=== PATIENT | male | born 1940 | race Caucasian/White ===

== ENCOUNTER 2016-05-11 14:15 | Inpatient (IN) | payer OTHER ==
[~2016-05-11] VITALS: Ht 182.9 cm; Wt 88.5 kg
--- NOTE | ~2016-05-11 | H ---
[facility] [place] [address] HISTORY AND PHYSICAL Name: KARAN GODWIN Room #: 241-P [facility] IN M.R.#: [id number] Admission: 05/16/16 Attend Phys: Geoffrey Andrews MD Discharge: 05/17/16 Date of : 42 Report #: [id number] THIS REPORT FOR: //name// For History and Physical, please see office documentation/handwritten note in the patient's medical record. By: 1535 Geoffrey Andrews MD /
--- NOTE | ~2016-05-11 | O ---
[facility] [place] [address] OPERATIVE REPORT Name: KARAN GODWIN Room #: 150-7 ADM IN M.R.#: [id number] Admission: 05/16/16 Attend Phys: Geoffrey Andrews MD Discharge: Date of : 42 Report #: [id number] THIS REPORT FOR: //name// CC: Conner Lamas [facility] physician/PCP Jesus Andrews DATE OF SERVICE: 05/16/2016 PREOPERATIVE DIAGNOSIS: Left carotid artery stenosis. POSTOPERATIVE DIAGNOSIS: Left carotid artery stenosis. OPERATION: Left carotid endarterectomy with patch closure. SURGEON: Geoffrey Andrews MD COLLEGE COACH: Vaughn. ANESTHESIA: General. INDICATION: The patient is a 75-year-old seen for Dr. Epperson. The patient has 80% exophytic lesion in the origin of the left internal carotid artery. The patient presented with episode of expressive aphasia on April 17. No recurrence was noted. No other motor or sensory symptoms were seen. Arteriography showed trivial disease in the right carotid. FINDINGS AND TECHNIQUE: After general anesthesia was established, exposure was obtained through an oblique left neck incision, common facial vein was divided. Common internal and external carotid arteries were identified and controlled, 10,000 units of heparin were given. Continuous electroencephalographic monitoring was performed during the operation when the carotid vessels were occluded. No EEG changes were noted. The carotid arteriotomy was made. The endarterectomy was performed without creating a distal flap. Neointima was inspected and all loose debris was removed. Tacking sutures were placed at the transition zone. When the endarterectomy was deemed to be satisfactory, the arteriotomy was closed with Bovine pericardial patch and running Prolene. Prior to finishing the closure, the carotid vessels were backbled and the artery was irrigated with heparinized saline. Flow was established first through the external, then the internal carotid artery. [facility] [address] [place] [address] OPERATIVE REPORT Name: KARAN GODWIN Room #: 150-7 [facility] IN .R.#: [id number] Admission: 05/16/16 Attend Phys: Geoffrey Andrews MD Discharge: Date of : 42 Report #: [id number] Protamine 25 mg was given to reverse the heparin. When hemostasis was satisfactory, the wound was irrigated with antibiotic solution. Lalit drain was brought out through the bottom pole of the incision and the wound was closed in layers. The patient was taken to the recovery area in good condition where neurologic progress was monitored. All counts reported as correct. By: [id number] Geoffrey Andrews MD /nt
--- NOTE | ~2016-05-11 | S ---
[facility] [place] [address] SURGICAL PATH RPT PROCEDURE Name: KARAN RONQUILLO Room #: 241-P [facility] IN M.R.#: [id number] Admission: 05/16/16 Date of : 42 Discharge: 05/17/16 Report #: [id number] Path Case #: [id number] PATHOLOGY REPORT COLLECTION DATE: 05/16/2016 RECEIVED DATE: 05/16/2016 SUBMITTING PHYS: Dr. Misael Jose OTHER PHYS: Dr. Conner Lamas SPECIMEN(S) RECEIVED: A.Left carotid plaque * * * * * * * * * * * * FINAL DIAGNOSIS: "Left carotid plaque," endarterectomy: - Calcific atherosclerosis. (CLW:mgefrain; d/t: 05/17/16) PATHOLOGIST: Charo Gagnon M.D. REPORT ELECTRONICALLY SIGNED BY: Charo Gagnon M.D. DATE/TIME: 05/17/2016 21:53 * * * * * * * * * * * * GROSS PATHOLOGY: The specimen is received in formalin, labeled "Karan Ronquillo and left carotid plaque." Received is a 2.3 x 1.0 x 0.7 cm yellow-castaneda, blood-tinged, rubbery, and tubular segment of soft tissue with focal areas of calcifications. The specimen is serially sectioned and representatively submitted in cassette A1, following decalcification. (TTL; 05/16/2016) CLINICAL HISTORY: Carotid stenosis INITIAL CPT CODE(S): A; 03439, 66215 Professional services performed by [facility] at [facility] [address] [place] [address] Technical services performed by [facility] at [address] [place] [id number]. [facility] [address] [place] [address] SURGICAL PATH RPT PROCEDURE Name: KARAN RONQUILLO Room #: 241-P [facility] IN M.R.#: [id number] Admission: 05/16/16 Date of : 42 Discharge: 05/17/16 Report #: [id number] Path Case #: [id number] [facility] [address] [address] PHONE: [phone] DIRECTOR: Kyle Woods M.D. * * * END OF REPORT * * *
[~2016-05-11 14:15] MED LIST: ASPIR 8181 M1 PO; ASPIRIN325 PO; ATORVASTATIN CA40 MG PO; FISH OIL 1,001000 M2 PO; QUINU10 PD PO; TOPROL XL25 MG PO
[2016-05-15 14:21] LABS: HEMATOCRIT 47.1 % (42.0-52.0); HEMOGLOBIN 16.1 gm/dL (14.0-18.0); MCH 33.3 pg (26.0-34.0); MCHC 34.1 g/dL (28.0-37.0); MCV 97.6 fL (80.0-100.0); RBC 4.82 mil/uL (4.50-6.00); RDW 13.4 % (10.5-14.5); URINE BILIRUBIN NEGATIVE (Negative); URINE BLOOD 1+ (Negative); URINE COLOR YELLOW; URINE GLUCOSE-RANDOM* NEGATIVE (Negative); URINE KETONES NEGATIVE (Negative); URINE LEUKOCYTES-REFLEX NEGATIVE (Negative); URINE PROTEIN (DIPSTICK) NEGATIVE (Negative); URINE SPECIFIC GRAVITY <= 1.005 (1.003-1.035); URINE UROBILINOGEN 0.2 E.U./dl (0.2-1.0); WBC 8.7 thou/uL (4.0-11.0)
[2016-05-15 14:32] LABS: CASTS None Seen /LPF (None Seen); CRYSTALS None Seen /LPF (None Seen); SQUAMOUS None Seen /LPF (0-3); URINE RBC 0-2 Rare /HPF (0-2); URINE WBC-REFLEX None Seen /HPF (0-5)
[2016-05-15 14:35] LABS: ALBUMIN 3.6 g/dL (3.4-5.0); CALCIUM 8.9 mg/dL (8.5-10.1); CREATININE 1.2 mg/dL (0.7-1.3); TOTAL BILIRUBIN 0.4 mg/dL (<0.1-1.0); TOTAL PROTEIN 7.4 g/dL (6.4-8.2)
[2016-05-15 14:41] LABS: APTT 27.6 Seconds (24.5-32.8); INR 1.1; PROTIME 11.4 Seconds (9.3-11.4)
[2016-05-16 07:03] VITALS: BP 145/92
[2016-05-17] VITALS (14 sets, daily range): BP systolic 91–115; BP diastolic 44–63
[2016-05-17 05:45] LABS: HEMATOCRIT 37.6 % (42.0-52.0); HEMOGLOBIN 12.8 gm/dL (14.0-18.0); MCH 33.7 pg (26.0-34.0); MCV 99.2 fL (80.0-100.0); RBC 3.79 mil/uL (4.50-6.00); RDW 13.9 % (10.5-14.5); WBC 10.7 thou/uL (4.0-11.0)
[2016-05-17 06:45] LABS: CREATININE 1.2 mg/dL (0.7-1.3); POTASSIUM 3.8 mmol/L (3.5-5.1)
== END 2016-05-17 12:45 | disposition home or self-care (01) | DRG 39 ==
LOC: PRE 14:15 → ICU 05-16 05:44 → TBA 05-16 05:44 → PRE 05-16 08:11 → ICU 05-16 12:42 → PRE 05-16 13:50 → ICU 05-17 12:45
PROVIDERS: Physician Assistant; Surgery Vascular Surgery
PROC: 03UL0JZ Supplement Left Internal Carotid Artery with Synthetic Substitute, Open Approach (ICD-10-PCS; principal; 2016-05-16)
PROC: 03CL0ZZ Extirpation of Matter from Left Internal Carotid Artery, Open Approach (ICD-10-PCS; principal; 2016-05-16)
PROC: 03HC33Z Insertion of Infusion Device into Left Radial Artery, Percutaneous Approach (ICD-10-PCS; 2016-05-16)
DX: I65.22 Occlusion and stenosis of left carotid artery (principal); N40.0 Benign prostatic hyperplasia without lower urinary tract symptoms; Z79.82 Long term (current) use of aspirin
CPT/HCPCS: 10078; 50010; 50101; 50386; 50417; 50455; 51301; 51751; 52279; 54118; 56524; 56526; 56527; 56528; 56534; 62110; 62900; 70005

== ENCOUNTER → 2020-04-19 | Outpatient (CLI) | payer OTHER | LOC: SJCVC 11:42 | PROVIDERS: ATTEND Internal Medicine Cardiovascular Disease | DX: I25.10 Atherosclerotic heart disease of native coronary artery without angina pectoris (principal); I10 Essential (primary) hypertension; E78.00 Pure hypercholesterolemia, unspecified; I65.23 Occlusion and stenosis of bilateral carotid arteries; N40.0 Benign prostatic hyperplasia without lower urinary tract symptoms; F17.210 Nicotine dependence, cigarettes, uncomplicated; Z98.890 Other specified postprocedural states; Z79.82 Long term (current) use of aspirin; Z79.899 Other long term (current) drug therapy; Z86.16 Personal history of COVID-19 ==

== ENCOUNTER → 2020-08-02 | Outpatient (CLI) | payer OTHER | LOC: SJCVCIMAG 08:14 | PROVIDERS: ATTEND Internal Medicine Cardiovascular Disease | DX: I65.21 Occlusion and stenosis of right carotid artery (principal); I25.10 Atherosclerotic heart disease of native coronary artery without angina pectoris; I10 Essential (primary) hypertension; E78.5 Hyperlipidemia, unspecified; I49.9 Cardiac arrhythmia, unspecified; R53.83 Other fatigue ==

== ENCOUNTER → 2020-08-18 | Outpatient (CLI) | payer OTHER | LOC: SJCVCIMAG 07:07 | PROVIDERS: ATTEND Internal Medicine Cardiovascular Disease | DX: I70.203 Unspecified atherosclerosis of native arteries of extremities, bilateral legs (principal); I65.21 Occlusion and stenosis of right carotid artery; M79.661 Pain in right lower leg; M79.662 Pain in left lower leg ==